=== PATIENT | male | born 1970 | race Caucasian/White ===

== ENCOUNTER 2021-08-28 07:46 | Outpatient (CLI) | payer BC | END 2021-08-28 07:47 | disposition home or self-care (01) | LOC: BICCT 07:46 | PROVIDERS: ATTEND Internal Medicine | DX: R91.1 Solitary pulmonary nodule (principal) | CPT/HCPCS: 71250 ==

== ENCOUNTER 2022-02-12 13:01 | Outpatient (CLI) | payer BC | END 2022-02-12 13:02 | disposition home or self-care (01) | LOC: BICCT 13:01 | PROVIDERS: ATTEND Internal Medicine | DX: R91.1 Solitary pulmonary nodule (principal) | CPT/HCPCS: 71250 ==

== ENCOUNTER 2022-02-23 07:07 | Outpatient (CLI) | payer BC | END 2022-02-23 07:08 | disposition home or self-care (01) | LOC: BICULT 07:07 | PROVIDERS: ATTEND Internal Medicine | DX: R79.89 Other specified abnormal findings of blood chemistry (principal); K76.0 Fatty (change of) liver, not elsewhere classified; Z90.49 Acquired absence of other specified parts of digestive tract | CPT/HCPCS: 76700 ==